=== PATIENT | male | born 1945 | race Caucasian/White ===

== ENCOUNTER 2017-06-03 13:19 | Outpatient (CLI) | payer OTHER ==
[2017-06-03 13:44] LABS: BASOPHILS % 1.1 (0.0-1.5); EOSINOPHILS % 2.9 % (0.0-6.8); MEAN CORPUSCULAR HEMOGLOBIN 29.8 pg (28.0-34.0); MEAN CORPUSCULAR VOLUME 84.8 fl (80.0-100.0); MONOCYTES % 8.6 % (0.0-11.0); NEUTROPHILS # 2.9 # k/uL (1.4-7.7)
[2017-06-03 14:22] LABS: eGFR (African) > 60; eGFR (Non-African) > 60
== END 2017-06-03 13:20 ==
LOC: LAB 13:19
PROVIDERS: ATTEND Family Medicine
DX: Z00.00 Encounter for general adult medical examination without abnormal findings (principal); Z12.5 Encounter for screening for malignant neoplasm of prostate; Z86.39 Personal history of other endocrine, nutritional and metabolic disease
CPT/HCPCS: 36415; 80053; 80061; 83540; 85025; G0103

== ENCOUNTER 2018-06-08 08:51 | Outpatient (CLI) | payer OTHER ==
[2018-06-08 11:46] LABS: eGFR (Non-African) > 60
[2018-06-08 16:02] LABS: BASO % 0.3 % (0.0-1.5); EOS % 4.6 % (0.0-6.8); LYMPH ABS # 2.18 thou/uL (0.60-4.00); MCH. 29.3 pg (28.0-34.0); MCV 86.9 fL (80.0-100.0); MONOCYTE % 8.7 % (0.0-11.0); MONOCYTE ABS # 0.48 thou/uL (0.00-0.90); PLATELET COUNT 323 thou/uL (130-400)
== END 2018-06-08 08:52 ==
LOC: LAB 08:51
PROVIDERS: ATTEND Family Medicine
DX: Z00.00 Encounter for general adult medical examination without abnormal findings (principal); Z12.5 Encounter for screening for malignant neoplasm of prostate; Z86.39 Personal history of other endocrine, nutritional and metabolic disease
CPT/HCPCS: 36415; 80053; 80061; 83540; 85025; G0103

== ENCOUNTER 2018-11-30 09:35 | Outpatient (CLI) | payer OTHER | END 2018-11-30 09:38 | LOC: LAB 09:35 | PROVIDERS: ATTEND Nurse Practitioner | DX: G31.84 Mild cognitive impairment of uncertain or unknown etiology (principal); M79.2 Neuralgia and neuritis, unspecified; I63.81 Other cerebral infarction due to occlusion or stenosis of small artery | CPT/HCPCS: 36415; 82306; 82607; 83921; 84439; 84443; 86780 ==

== ENCOUNTER 2019-06-30 10:12 | Outpatient (CLI) | payer OTHER | END 2019-06-30 10:17 | LOC: LAB 10:12 | PROVIDERS: ATTEND Family Medicine | DX: Z12.5 Encounter for screening for malignant neoplasm of prostate (principal) | CPT/HCPCS: 36415; 84153 ==